=== PATIENT | male | born 1970 | race Caucasian/White ===

== ENCOUNTER 2023-07-22 00:51 | Emergency (ER) | payer OTHER ==
[~2023-07-22] VITALS: Ht 170.2 cm; Wt 122.5 kg
[~2023-07-22 00:51] MED LIST: CYCL10; CYCL10 PO; DIAZ5 PO; HYDACE5 PO; IBUP800 PO; LORA1 PO; META800 PO; METPRE4DP PO; NAPR500 PO; NAPR550 PO; OXYACE5T; OXYACE5T PO; PRED20 PO; RXCYCL10 PO; RXNAPNA550 PO; TAMO10
[2023-07-22 01:24] VITALS: BP 168/94
== END 2023-07-22 03:17 | disposition home or self-care (01) ==
LOC: ER 00:51
DX: S33.5XXA Sprain of ligaments of lumbar spine, initial encounter (principal); M54.50 Low back pain, unspecified; G89.29 Other chronic pain; Z68.42 Body mass index [BMI] 45.0-49.9, adult; Z98.1 Arthrodesis status; Z88.8 Allergy status to other drugs, medicaments and biological substances; W18.40XA Slipping, tripping and stumbling without falling, unspecified, initial encounter
CPT/HCPCS: 99283